=== PATIENT | female | born 1985 | race Caucasian/White ===

== ENCOUNTER 2016-10-19 10:50 | Emergency (ER) | payer MEDICAID ==
[2016-10-19 11:10] VITALS: BP 147/84
[2016-10-19] MEDS ORDERED: Ketorolac 60 MG/2 ML SDV IM ONE (11:20)
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
--- NOTE | 2016-10-19 11:50 | CR ---
Sacrum Coccyx Min 2V HISTORY: pain, fall FINDINGS: Segments of the sacrum and coccyx appear intact and in satisfactory alignment. No fracture s identified. There is no dislocation. Bony architecture is preserved. Presacral soft tissues appear normal. IMPRESSION: No fracture or other acute abnormality is identified.
[2016-10-19] MEDS ORDERED: HYDROmorphone 1 MG/ML Syringe IM ONE (12:04)
== END 2016-10-19 12:58 | disposition home or self-care (01) ==
LOC: JP.ED 10:50
DX: M53.3 Sacrococcygeal disorders, not elsewhere classified (principal); F17.210 Nicotine dependence, cigarettes, uncomplicated; G43.909 Migraine, unspecified, not intractable, without status migrainosus; Z88.0 Allergy status to penicillin; Z88.8 Allergy status to other drugs, medicaments and biological substances
CPT/HCPCS: 72220; 96372; 99284; J1170; J1885; 99283

== ENCOUNTER 2018-10-30 13:50 | Emergency (ER) | payer MEDICAID ==
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
[2018-10-30 14:12] VITALS: BP 136/63
--- NOTE | 2018-10-30 15:46 | CR ---
FOOT RIGHT 3 views CLINICAL HISTORY:Right foot pain FINDINGS:No fracture or osseous lesion is identified. Joint spaces are fairly well-maintained. Impression: No fracture or dislocation
== END 2018-10-30 14:42 | disposition home or self-care (01) ==
LOC: JP.ED 13:50
DX: S93.601A Unspecified sprain of right foot, initial encounter (principal); W18.39XA Other fall on same level, initial encounter; Z88.0 Allergy status to penicillin; Z88.8 Allergy status to other drugs, medicaments and biological substances; Z98.890 Other specified postprocedural states; Z98.51 Tubal ligation status
CPT/HCPCS: 73630-26-RT; 73630-RT; 99283-25

== ENCOUNTER 2019-09-07 16:39 | Emergency (ER) | payer SELFPAY ==
[2019-09-07 16:55] VITALS: BP 164/82; PULSE 108
[2019-09-07] MEDS ORDERED: Bacitracin Oint 1 GM U/D Packet TOP ONE (17:51)
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
== END 2019-09-07 18:26 | disposition home or self-care (01) ==
LOC: JP.ED 16:39
DX: S61.411A Laceration without foreign body of right hand, initial encounter (principal); Z88.0 Allergy status to penicillin; Z88.8 Allergy status to other drugs, medicaments and biological substances; F17.210 Nicotine dependence, cigarettes, uncomplicated; X99.9XXA Assault by unspecified sharp object, initial encounter
CPT/HCPCS: 12001; 99282; 99283

== ENCOUNTER 2023-04-18 16:58 | Emergency (ER) | payer SELFPAY ==
[2023-04-18 17:07] VITALS: BP 149/85; PULSE 88
[2023-04-18] MEDS ORDERED: Clindamycin HCl 150 MG Cap PO ONE (17:36)
== END 2023-04-18 18:05 | disposition home or self-care (01) ==
LOC: JP.ED 16:58
DX: K04.7 Periapical abscess without sinus (principal); L03.211 Cellulitis of face; Z88.8 Allergy status to other drugs, medicaments and biological substances; Z88.0 Allergy status to penicillin
CPT/HCPCS: 99282; 99283